=== PATIENT | female | born 1965 | race Caucasian/White ===

== ENCOUNTER 2016-12-10 14:08 | Emergency (ER) | payer SELFPAY ==
[~2016-12-10] VITALS: Ht 152.4 cm; Wt 46.5 kg
[2016-12-10 14:10] VITALS: BP 160/70; PULSE 87; RESP 20; TEMP 97.7; O2SAT 98
[2016-12-10] MEDS ORDERED: TRAZ100T4 PO (16:04)
[2016-12-10] MEDS ORDERED: DIAZ5TAB PO (16:04)
[2016-12-10] MEDS ORDERED: HYDR-3535 PO (16:04)
--- NOTE | 2016-12-10 16:47 | PD ---
HPI Chief Complaint: Fall Time Seen by Provider: 04:40 Travel History International Travel<30 days: No Contact w/Intl Traveler<30days: No Traveled to known affect area: No History of Present Illness HPI 51-year-old female presents to emergency Department with complaint of right shoulder pain, right hip pain, right ankle pain after falling to her right side on a set of cement stairs yesterday at her house. She said she did hit her head but denies loss of consciousness. She states that she fell in a way that twisted her back. She has history of chronic low back pain. Denies nausea, vomiting, headache, lightheadedness, dizziness. Denies change in mentation, confusion, disorientation, slurred speech. Denies focal deficits or weakness. Denies paresthesias, loss of sensation to all extremities. Denies encopresis, incontinence, saddle anesthesias. Denies chest pain, shortness of breath, abdominal pain. Reports decreased range of motion at her hip and right ankle secondary to pain. Denies anticoagulants. She has been ambulatory with a limp to the right lower extremity since the fall. History of chronic low back pain and has been taking her hydrocodone's with good relief of pain. She has not tried any other treatments or medication to alleviate her symptoms. Allergies to codeine. No other modifying factors or associated signs and symptoms. PFSH Social History Tobacco Use: No Allergies-Medications (Allergen,Severity, Reaction): Coded Allergies: Codeine (Verified Adverse Reaction, Intermediate, Nausea/Vomiting, 12/10/16 ) Reported Meds & Prescriptions Reported Meds & Active Scripts Active Folding Walker/5" Wheels (Device) 1 Mis Mis 1 Ea .ROUTE DIRECTED Robaxin (Methocarbamol) 500 Mg Tab 500 Mg PO QID PRN Ibuprofen 800 Mg Tab 800 Mg PO Q8H PRN Reported Lortab (Hydrocodone-Acetaminophen) 10-325 Mg Tab 1 Tab PO Q6H PRN Diazepam 5 Mg Tab 5 Mg PO BID PRN Trazodone (Trazodone HCl) 100 Mg Tab 50 Mg PO HS Review of Systems Except as stated in HPI: all other systems reviewed are Neg Physical Exam Narrative GENERAL: Well-nourished, well-developed female patient, in no acute distress SKIN: Warm and dry. HEAD: Atraumatic. Normocephalic. No facial or scalp abrasions or lacerations noted. EYES: Pupils equal and round at 3 mm with brisk reaction. No scleral icterus. No injection or drainage. No raccoon eyes. No orbital tenderness on palpation bilaterally. ENT: Mucosa pink and moist. No erythema or exudates. No uvular edema. No uvular , palatal, or tonsillar deviation. Airway patent. Nares without nasal blood, purulent drainage or septal hematoma. No rhinorrhea. EARS: Bilateral pinnae and external canals appear within normal limits. Bilateral tympanic membranes without erythema, dullness, hemotympanum or perforation. No otorrhea. No trevino signs. NECK: Moving freely. Trachea midline. Active rotation of the neck greater than 45 left and right. No midline point tenderness on palpation of the cervical spine. No obvious deformities. CHEST: Nontender throughout without deformity or crepitance. No retractions or use of accessory muscles. CARDIOVASCULAR: Regular rate and rhythm. No murmur appreciated. RESPIRATORY: No accessory muscle use. Clear to auscultation. Breath sounds equal bilaterally. GASTROINTESTINAL: Abdomen soft, non-tender, nondistended. Hepatic and splenic margins not palpable. Bowel sounds are active 4 quadrants. MUSCULOSKELETAL: Right hip with decreased range of motion and with tenderness on abduction; with tenderness on palpation to the lateral and posterior aspect of the lower back; without erythema, edema, ecchymosis. Right shoulder with full range of motion and without erythema, edema, ecchymosis; greater than 45 abduction; joint stable; shoulders equal. Right ankle without edema, ecchymosis , erythema; with tenderness on palpation to medial and lateral aspect; no obvious deformity; decreased range of motion. Right upper and lower extremities are supple and non-tense with 2+ pulses and sensory intact without erythema or edema. No obvious deformities. No clubbing. No cyanosis. No edema. BACK: No midline Point tenderness on palpation of the lumbar or thoracic spine. Reproducible tenderness to the right iliosacral area. No obvious deformities. Patient sitting up in bed at 90. Ambulatory in room with a limp to the right lower extremity. NEUROLOGICAL: Awake and alert. Oriented 3. No obvious cranial nerve deficits. Motor grossly within normal limits. Normal speech. Moves all extremities. 5/5 strength to all extremities. Sensory intact. PSYCHIATRIC: Appropriate mood and affect; insight and judgment normal. Data Data Last Documented VS Vital Signs Date Time Temp Pulse Resp B/P Pulse Ox O2 Delivery O2 Flow Rate FiO2 12/10/16 14:10 97.7 87 20 160/70 98 Orders Ankle, Complete ([id number]) (12/10/16 16:44) Hip, Uni(Ap&Lat) W Ap Pelvis (12/10/16 16:44) Methocarbamol (Robaxin) (12/10/16 17:30) Ibuprofen (Motrin) (12/10/16 17:30) Splint Or Brace Apply/Monitor (12/10/16 17:23) Crutches (12/10/16 17:23) Brace Ankle Stirrup (12/10/16 ) MDM Medical Decision Making Medical Screen Exam Complete: Yes Emergency Medical Condition: Yes Medical Record Reviewed: Yes Differential Diagnosis Hip fracture, hip contusion, ankle sprain, low back strain Narrative Course 51-year-old female with right hip contusion, right ankle sprain, low back strain , and acute exacerbation of chronic low back pain after falling to her right side on cement stairs at her home. She reports hitting her head but denies loss of consciousness. Denies nausea, vomiting. On physical exam the patient is without raccoon eyes, trevino signs, rhinorrhea, or hemotympanum. I do not suspect open or depressed skull fracture, and the patient has no signs of basilar skull fracture. [place] CT Head Injury Rule suggests a head CT is not necessary for this patient and clears the patient for head injury without imaging. Denies neck pain. [place] C-Spine Rule suggests the C-Spine can be cleared clinically of fracture, and imaging is not required. There is no midline point tenderness on palpation of the cervical spine. The patient is able to actively rotate the neck 45 left and right. The patient is sitting up in bed at 90. The patient is ambulatory in the room with a limp to the right lower extremity. Right hip with AP pelvis x-ray ordered. Right ankle x-ray ordered. 1722: Right ankle x-ray with no fracture to findings. Right hip with AP pelvis x-ray with no fracture or acute findings. Ibuprofen and Robaxin administered in the ER. Ankle stirrup splint and crutches provided for support. Ibuprofen and Robaxin prescribed for home. Prescription for walker for support provided for home. Instructed patient to follow up with orthopedics as needed. Patient verbalizes understanding and agreement with treatment plan. Patient is medically cleared and stable for discharge. Discussed reasons to return to the emergency department. Instructed patient to follow up with primary care provider. Patient agrees with treatment plan. The patients vital signs are stable and the patient is stable for outpatient follow- up and treatment. Patient discharged home, stable and in no acute distress. Diagnosis Primary Impression: Contusion of right hip Qualified Code: S70.01XA - Contusion of right hip, initial encounter Additional Impressions: Acute exacerbation of chronic low back pain Right ankle sprain Qualified Code: S93.401A - Sprain of right ankle, unspecified ligament, initial encounter Low back strain Qualified Code: S39.012A - Low back strain, initial encounter Referrals: Orthopedist Primary Care Physician Patient Instructions: Acute Low Back Pain (ED), Ankle Sprain (ED), Ankle Sprain Exercises (GEN), Ankle Stirrup Splint (ED), Crutch Instructions (ED), Fall Prevention (ED), General Instructions, Low Back Strain (ED), Lower Back Exercises (ED) Departure Forms: Tests/Procedures, Work Release Enter return to work date: Dec 17, 2016 Additional Instructions: Tylenol or ibuprofen as directed and as needed for pain Robaxin as prescribed and as needed for muscle spasms Heating pad and/or ice to affected area to reduce pain Avoid aggravating activities; increase activity as tolerated Follow-up with primary care provider Return to emergency department immediately with worsening of symptoms Tylenol/ibuprofen every 6 hours as directed and as needed for pain Rest, ice, compress, and elevate extremity to decrease pain and inflammation Ankle Brace for support Crutches or walker for support Avoid aggravating activity; increase activity as tolerated Follow-up with primary care provider Follow-up with orthopedic as needed Return to the emergency department immediately with worsening symptoms Med/Other Pt SpecificInfo: Prescription(s) given Scripts Folding Walker/5" Wheels 1 Mis Mis #1 Ea .route As Directed Prov:Mady HerronP 12/10/16 Methocarbamol (Robaxin)500 Mg [id number] Mg PO QID PRN (MUSCLE SPASM) #30 TAB Ref 0 Prov:Mady HerronP 12/10/16 Ibuprofen 800 Mg [id number] Mg PO Q8H PRN (PAIN SCALE 1 TO 10) #30 TAB Ref 0 Prov:Mady Herron 12/10/16 Disposition: 01 DISCHARGE HOME Condition: Stable Mady Herron Dec 10, 2016 16:47
--- NOTE | 2016-12-10 17:13 | RADRPT ---
EXAM DATE/TIME: 12/10/2016 16:58 [facility] COMPARISON: No previous studies available for comparison. INDICATIONS : Right hip pain after fall. MEDICAL HISTORY : None. SURGICAL HISTORY : None. ENCOUNTER: Initial ACUITY: 2 days PAIN SCORE: 10/10 LOCATION: Right hip. FINDINGS: Examination of the right hip was performed with AP Pelvis. The primary and secondary trabecular ely danelle of the femoral neck is intact. The hip joint is of normal width without significant sclerosis or bony hypertrophy. The acetabulum is grossly intact. CONCLUSION: No fracture. Félix An MD on December 10, 2016 at 17:11 Board Certified Radiologist. This report was verified electronically.
--- NOTE | 2016-12-10 17:13 | RADRPT ---
EXAM DATE/TIME: 12/10/2016 16:58 [facility] COMPARISON: No previous studies available for comparison. INDICATIONS : Right ankle pain after fall. MEDICAL HISTORY : None. SURGICAL HISTORY : None. ENCOUNTER: Initial ACUITY: 2 days PAIN SCORE: 10/10 LOCATION: Right ankle. FINDINGS: Three view exam was performed of the right ankle. The bony structures are in normal alignment. No e vidence of fracture, dislocation, or soft tissue swelling. The ankle mortise is intact. No radiopaq ue foreign bodies are seen. Bony mineralization is normal. CONCLUSION: No fracture. Félix An MD on December 10, 2016 at 17:10 Board Certified Radiologist. This report was verified electronically.
[2016-12-10] MEDS ORDERED: IBUPROFEN 600 MG TAB PO ONE (17:30)
[2016-12-10] MEDS ORDERED: METHOCARBAMOL 500 MG TAB PO ONE (17:30)
[2016-12-10] MEDS ORDERED: ROBA500T PO (18:31)
[2016-12-10] MEDS ORDERED: IBUP800T23 PO (18:31)
[2016-12-10] MEDS ORDERED: MISC-274 (18:32)
== END 2016-12-10 18:45 | disposition home or self-care (01) ==
LOC: NETRI 14:08
DX: S70.01XA Contusion of right hip, initial encounter (principal); S93.401A Sprain of unspecified ligament of right ankle, initial encounter; S39.012A Strain of muscle, fascia and tendon of lower back, initial encounter; M25.511 Pain in right shoulder; W10.9XXA Fall (on) (from) unspecified stairs and steps, initial encounter; Y92.009 Unspecified place in unspecified non-institutional (private) residence as the place of occurrence of the external cause
CPT/HCPCS: 73502; 73610; 99284; E0113; L1906